=== PATIENT | male | born 1990 | race Caucasian/White ===

== ENCOUNTER 2018-11-24 14:03 | Outpatient (CLI) | payer BC ==
[2018-11-24 17:56] LABS: Hemoglobin 16.6 g/dL (14.0-18.0); Mean Corpuscular HGB CONC 34.8 g/dL (32.0-36.0); Mean Corpuscular Hemoglobin 29.8 pg (27.0-31.0); Mean Corpuscular Volume 85.8 fL (78.0-98.0); Mean Platelet Volume 6.7 fL (7.4-10.4); Platelet Count 331 thou/uL (130-400); RBC Distribution Width 11.6 % (11.5-14.5); Red Blood Cell (RBC) Count 5.55 mill/uL (4.70-6.10); White Blood Cell (WBC) Count 8.2 thou/uL (4.8-10.8)
[2018-11-24 18:22] LABS: ALT (SGPT) 68 U/L (8-55); AST (SGOT) 25 U/L (5-34); Albumin 4.6 g/dL (3.5-5.0); Alkaline Phosphatase 112 U/L (40-150); Anion Gap 12 mmol/L (10-20); BUN (Urea Nitrogen) 17 mg/dL (8.9-20.6); Bilirubin, Total 0.5 mg/dL (0.2-1.2); Calc. Creatinine Clearance 0 mL/min (70-130); Calcium 9.3 mg/dL (7.8-10.44); Carbon Dioxide 25 mmol/L (22-29); Chloride 106 mmol/L (98-107); Estimated GFR-MDRD 84; Globulin 3.4 g/dL (2.4-3.5); Glucose 87 mg/dL (70-105); Potassium 3.7 mmol/L (3.5-5.1); Sodium 139 mmol/L (136-145)
== END 2018-11-24 14:04 | disposition home or self-care (01) ==
LOC: LABBT 14:03
PROVIDERS: ATTEND Surgery
DX: Z01.812 Encounter for preprocedural laboratory examination (principal); K43.9 Ventral hernia without obstruction or gangrene
CPT/HCPCS: 80053; 85027

== ENCOUNTER 2018-11-25 07:32 | Inpatient (IN) | payer BC ==
[2018-11-24 16:52] VITALS: BMI 35.1
[2018-11-25] MEDS ORDERED: Lidocaine 2% Jelly 5 ML TUBE ONE (08:45)
[2018-11-25] MEDS ORDERED: Fentanyl 250 MCG/5 ML VIAL ONE (08:45)
[2018-11-25] MEDS ORDERED: Midazolam HCl 2 mg/2 ml Vial ONE ×2 (08:45→08:47)
[2018-11-25 08:46] LABS: #Basophils 0.1 thou/uL (0.0-0.2); #Eosinphils 0.2 thou/uL (0.0-0.7); #Lymphocytes 1.6 thou/uL (1.20-3.40); #Monocytes 0.5 thou/uL (0.11-0.59); %Basophils 0.8 % (0.0-1.0); %Eosinophils 3.7 % (0.0-10.0); %Lymphocytes 24.8 % (21.0-51.0); %Monocytes 7.8 % (0.0-10.0); %Neutrophils 62.8 % (42.0-75.0); Hemoglobin 15.9 g/dL (14.0-18.0); Mean Corpuscular HGB CONC 33.9 g/dL (32.0-36.0); Mean Corpuscular Hemoglobin 29.2 pg (27.0-31.0); Mean Corpuscular Volume 86.2 fL (78.0-98.0); Mean Platelet Volume 6.6 fL (7.4-10.4); Platelet Count 298 thou/uL (130-400); RBC Distribution Width 11.5 % (11.5-14.5); Red Blood Cell (RBC) Count 5.43 mill/uL (4.70-6.10); White Blood Cell (WBC) Count 6.4 thou/uL (4.8-10.8)
[2018-11-25] MEDS ORDERED: Bupivacaine/Epinephrine 0.25% 30 ML VIAL ONE (08:48)
[2018-11-25] MEDS ORDERED: CEFAZOLIN 2 GM/50 ML BAG ONE (09:03)
[2018-11-25 09:05] LABS: ALT (SGPT) 60 U/L (8-55); AST (SGOT) 26 U/L (5-34); Albumin 4.3 g/dL (3.5-5.0); Alkaline Phosphatase 102 U/L (40-150); Anion Gap 15 mmol/L (10-20); BUN (Urea Nitrogen) 17 mg/dL (8.9-20.6); Bilirubin, Total 0.6 mg/dL (0.2-1.2); Calc. Creatinine Clearance 169 mL/min (70-130); Calcium 9.1 mg/dL (7.8-10.44); Carbon Dioxide 21 mmol/L (22-29); Chloride 108 mmol/L (98-107); Estimated GFR-MDRD 90; Globulin 2.9 g/dL (2.4-3.5); Glucose 112 mg/dL (70-105); Potassium 4.8 mmol/L (3.5-5.1); Protein, Total 7.2 g/dL (6.0-8.3); Sodium 139 mmol/L (136-145)
[2018-11-25] MEDS ORDERED: Fentanyl 100 MCG/2 ML VIAL ONE ×2 (10:33→10:54)
--- NOTE | 2018-11-25 10:53 | OP ---
DATE OF PROCEDURE: 11/25/2018 PREOPERATIVE DIAGNOSIS: Ventral hernia. PROCEDURES PERFORMED: Laparoscopic ventral hernia repair with mesh. INDICATIONS: A 28-year-old male, who has a painful midline ventral hernia just above the umbilicus. FINDINGS: A 2 cm defect, an 11 cm mesh used. DESCRIPTION OF PROCEDURE: After informed consent was obtained, the patient was taken to the operating room and given general endotracheal anesthesia, placed in supine position. Abdomen was prepped and draped in usual fashion. Local anesthesia infiltrated subcutaneously and deep, and a 10 mm incision was performed in the right flank. Veress needle inserted. Drop test performed. Pneumoperitoneum was created to a volume of 2 L of carbon dioxide. Utilizing a bladeless 12-mm trocar and 0-degree laparoscope, direct visual entry into the abdominal cavity was performed. Pneumoperitoneum was then created to a pressure of 15 mmHg. Under direct vision, two 5-mm ports were placed on the right side. Then, a laparoscopic lysis of adhesion was performed to reduce the hernia defect contents. The defect was approximately 2 cm. The falciform ligament was taken down to facilitate closure. The defect was closed primarily transversely utilizing an 0 PDS V-Loc. Then, the 11 cm mesh was fashioned with four 0 Ethibond sutures spaced evenly, hydrated, rolled, and inserted intra-abdominally. The sutures were then grasped individually with the GraNee needle to position the mesh optimally to cover the defect. This was done with the pressure decreased to 10 mmHg. These were tied down and then the mesh further secured to the abdominal wall with the SecureStrap Tacker. Then, the abdomen was decompressed. Scope removed. Trocars removed. Skin was closed with interrupted 4-0 Rapide. Dermabond applied. The patient tolerated the procedure well, transferred to Recovery in good condition. Sponge and needle count verified correct x2. Job ID: [id number]
[2018-11-25] MEDS ORDERED: Morphine 4 MG/ML VIAL ONE ×2 (12:47→14:47)
[2018-11-25] MEDS ORDERED: HYDROcodone/Acetaminophen 10/325 mg Tablet ONE (13:17)
[2018-11-25] MEDS ORDERED: Morphine 2 MG/ML SYRINGE ONE (15:22)
[2018-11-25] MEDS ORDERED: Morphine 4 MG/ML VIAL SLOW IVP PRN ×2 (16:01)
[2018-11-25] MEDS ORDERED: Ondansetron PF 4 MG/2 ML Vial IVP PRN (16:01)
[2018-11-25] MEDS ORDERED: Calcium Carbonate 500 MG ChewTAB PO PRN (16:01)
[2018-11-25] MEDS ORDERED: Mag-Al 1200 mg/1200 mg/30 ML UDCUP PO PRN (16:01)
[2018-11-25] MEDS ORDERED: hydrALAZINE 20 MG/ML VIAL SLOW IVP PRN (16:01)
[2018-11-25] MEDS ORDERED: Promethazine HCl 25 MG/ML VIAL IM PRN (16:01)
[2018-11-25] MEDS ORDERED: Dextrose 50% Abboject 50 ML SYRINGE SLOW IVP PRN (16:01)
[2018-11-25] MEDS ORDERED: HYDROcodone/Acetaminophen 10/325 mg Tablet PO PRN (16:01)
[2018-11-25] MEDS ORDERED: Acetaminophen 325 MG TAB PO PRN (16:01)
[2018-11-25] MEDS ORDERED: Dextrose 5% in Water 1,000 ML IV PRN (16:01)
[2018-11-25] MEDS: Ketorolac Tromethamine 30 MG/ML VIAL IVP SCH ×2 (17:56→23:16)
[2018-11-25] MEDS: D5 1/2 NS w/20 mEq KCL 1,000 ML IV SCH ×2 (17:56→19:47)
[2018-11-25] MEDS: HYDROcodone/Acetaminophen 10/325 mg Tablet PO PRN (18:48)
[2018-11-25] MEDS: Famotidine/PF 20 mg/2ml Vial SLOW IVP SCH (19:44)
[2018-11-25] MEDS: Famotidine 20 MG TAB PO SCH (19:47)
[2018-11-25] MEDS: Docusate 100 MG CAP PO SCH (19:47)
[2018-11-26] MEDS: HYDROcodone/Acetaminophen 10/325 mg Tablet PO PRN ×2 (01:13→06:53)
[2018-11-26] MEDS: Ketorolac Tromethamine 30 MG/ML VIAL IVP SCH ×2 (05:48→06:53)
[2018-11-26 05:50] VITALS: BP 116/76; TEMP 98
[2018-11-26 06:24] LABS: #Lymphocytes 1.3 thou/uL (1.20-3.40); #Monocytes 1.3 thou/uL (0.11-0.59); #Neutrophils 8.2 thou/uL (1.40-6.50); %Basophils 0.1 % (0.0-1.0); %Eosinophils 0.3 % (0.0-10.0); %Lymphocytes 11.9 % (21.0-51.0); %Monocytes 11.6 % (0.0-10.0); %Neutrophils 76.1 % (42.0-75.0); Hemoglobin 14.3 g/dL (14.0-18.0); Mean Corpuscular HGB CONC 34.4 g/dL (32.0-36.0); Mean Corpuscular Hemoglobin 30.1 pg (27.0-31.0); Mean Corpuscular Volume 87.4 fL (78.0-98.0); Mean Platelet Volume 6.3 fL (7.4-10.4); Platelet Count 241 thou/uL (130-400); RBC Distribution Width 11.7 % (11.5-14.5); Red Blood Cell (RBC) Count 4.76 mill/uL (4.70-6.10); White Blood Cell (WBC) Count 10.8 thou/uL (4.8-10.8)
[2018-11-26] MEDS: Docusate 100 MG CAP PO SCH (08:55)
[2018-11-26] MEDS: D5 1/2 NS w/20 mEq KCL 1,000 ML IV SCH (08:55)
[2018-11-26] MEDS: Famotidine/PF 20 mg/2ml Vial SLOW IVP SCH (08:59)
[2018-11-26] MEDS: Famotidine 20 MG TAB PO SCH (08:59)
[2018-11-26] MEDS ORDERED: Enoxaparin Sodium 40 MG/0.4 ML SYRINGE SC SCH (09:00)
== END 2018-11-26 08:55 | disposition home or self-care (01) | DRG 355 ==
LOC: SDC 07:32 → SJJU 16:01
PROVIDERS: ADMIT Surgery; ATTEND Surgery
PROC: 0WUF4JZ Supplement Abdominal Wall with Synthetic Substitute, Percutaneous Endoscopic Approach (ICD-10-PCS; principal; 2018-11-25)
DX: K43.9 Ventral hernia without obstruction or gangrene (principal)
CPT/HCPCS: 36415; 80053; 85025; 85027; 96374; 96375; C1781; J1885; J2250; J2270; J3010

== ENCOUNTER 2019-01-17 10:33 | Day surgery (SDC) | payer BC ==
[2019-01-17] MEDS ORDERED: ISOVUE-370 76%-LOCM 1 ML ONE (10:58)
[2019-01-17 11:48] LABS: Bilirubin Negative (Negative); Blood, Urine Negative (Negative); Clarity CLEAR (Clear); Glucose, Urine (Dipstick) Negative (Negative); Leukocyte Negative (Negative); Nitrite Negative (Negative); Protein, Urine (Dipstick) Negative (Neg-Trace); Specific Gravity, Urine 1.023 (1.002-1.036); Urobilinogen 0.2 mg/dL (0.2-1.0)
[2019-01-17 11:48] LABS: #Basophils 0.1 thou/uL (0.0-0.2); #Eosinphils 0.2 thou/uL (0.0-0.7); #Lymphocytes 1.8 thou/uL (1.20-3.40); #Monocytes 0.7 thou/uL (0.11-0.59); #Neutrophils 5.5 thou/uL (1.40-6.50); %Basophils 0.8 % (0.0-1.0); %Lymphocytes 21.7 % (21.0-51.0); %Neutrophils 66.5 % (42.0-75.0); Hemoglobin 16.7 g/dL (14.0-18.0); Mean Corpuscular HGB CONC 34.5 g/dL (32.0-36.0); Mean Corpuscular Hemoglobin 30.5 pg (27.0-31.0); Mean Corpuscular Volume 88.4 fL (78.0-98.0); Mean Platelet Volume 6.6 fL (7.4-10.4); Platelet Count 299 thou/uL (130-400); RBC Distribution Width 11.6 % (11.5-14.5); Red Blood Cell (RBC) Count 5.48 mill/uL (4.70-6.10); White Blood Cell (WBC) Count 8.2 thou/uL (4.8-10.8)
[2019-01-17 12:12] LABS: ALT (SGPT) 69 U/L (8-55); AST (SGOT) 23 U/L (5-34); Albumin 4.5 g/dL (3.5-5.0); Alkaline Phosphatase 127 U/L (40-150); Anion Gap 12 mmol/L (10-20); BUN (Urea Nitrogen) 10 mg/dL (8.9-20.6); Bilirubin, Total 1.1 mg/dL (0.2-1.2); Calc. Creatinine Clearance 0 mL/min (70-130); Calcium 9.5 mg/dL (7.8-10.44); Carbon Dioxide 28 mmol/L (22-29); Chloride 104 mmol/L (98-107); Estimated GFR-MDRD Greater than 90; Globulin 3.4 g/dL (2.4-3.5); Glucose 93 mg/dL (70-105); Lipase 12 U/L (8-78); Potassium 3.8 mmol/L (3.5-5.1); Protein, Total 7.9 g/dL (6.0-8.3); Sodium 140 mmol/L (136-145)
--- NOTE | 2019-01-17 14:14 | CT ---
CT ABDOMEN AND PELVIS WITH IV CONTRAST: Date: 01/17/19 PROVIDED CLINICAL HISTORY: Right lower quadrant pain. FINDINGS: Visualized lung bases are free of significant opacity. The liver, spleen, pancreas, kidneys, and adrenal glands demonstrate an unremarkable CT appearance. The appendix is mildly dilated and demonstrates mucosal thickening and periappendiceal fat stranding. It does not fill with contrast material despite prominent opacification of the cecum. There is no bowel dilatation, additional inflammatory fat stranding, free fluid, or free air apparent . There is a small, fat-containing left inguinal hernia. There is a small, fat-containing umbilical h ernia. IMPRESSION: Findings compatible with acute appendicitis. POS: TPC
[2019-01-17] MEDS ORDERED: Rocuronium Bromide 10 MG/ML (10ML VIAL) ONE (14:47)
[2019-01-17] MEDS ORDERED: Ketorolac Tromethamine 30 MG/ML VIAL ONE (14:47)
[2019-01-17] MEDS ORDERED: Dexamethasone 20 MG/5 ML VIAL ONE (14:47)
[2019-01-17] MEDS ORDERED: Glycopyrrolate 0.2 MG/ML 5 ML SYRINGE ONE (14:47)
[2019-01-17] MEDS ORDERED: Ondansetron PF 4 MG/2 ML Vial ONE (14:47)
[2019-01-17] MEDS ORDERED: Lidocaine 1% PF 5 ML VIAL ONE (14:47)
[2019-01-17] MEDS ORDERED: PROPOFOL 200 MG/20 ML VIAL ONE (14:47)
[2019-01-17] MEDS ORDERED: Succinylcholine Chloride 20 MG/ML 10 ml SYRINGE FS ONE (14:47)
[2019-01-17] MEDS ORDERED: Bupivacaine/Epinephrine 0.25% 30 ML VIAL ONE (17:22)
[2019-01-17] MEDS ORDERED: Famotidine/PF 20 mg/2ml Vial ONE (17:35)
[2019-01-17] MEDS ORDERED: Fentanyl 100 MCG/2 ML VIAL ONE ×2 (17:35→19:25)
[2019-01-17] MEDS ORDERED: cefOXitin 2 GM in Sodium Chloride 0.9% 100 ML IVPB SCH (18:00)
[2019-01-17] MEDS ORDERED: cefOXitin Sodium/Dextrose,Iso 2 GM in Premix Bag 1 BAG IVPB SCH (18:15)
[2019-01-17] MEDS ORDERED: HYDROcodone/Acetaminophen 5/325 mg Tablet ONE (20:44)
--- NOTE | 2019-01-18 01:21 | OP ---
DATE OF PROCEDURE: 01/17/2019 PREOPERATIVE DIAGNOSIS: Acute appendicitis. POSTOPERATIVE DIAGNOSIS: Acute appendicitis. OPERATION PERFORMED: Laparoscopic appendectomy. ANESTHESIA: General endotracheal. ESTIMATED BLOOD LOSS: 5 mL. FLUIDS GIVEN: 800 mL crystalloids. COUNTS: Sponge and instrument counts were verified as correct x2. COMPLICATIONS: None apparent to operation. INDICATIONS FOR OPERATION: A 28-year-old man presented with a 4-day history of abdominal pain. Clinical radiographic examination was consistent with acute appendicitis for which the patient was brought to the operating room for appendectomy. Findings are consistent with suppurative, but nonperforated retrocecal appendix. DESCRIPTION OF PROCEDURE: Informed consent was obtained from the patient, was brought to the operating room and placed in supine position. Following general anesthesia, the abdomen was sterilely prepped and draped in usual fashion. The skin below the umbilicus was infiltrated with 0.25% Marcaine with epinephrine. A small curvilinear infraumbilical incision was made using 11 scalpel. Umbilical stalk was grasped with Alfredo and elevated. Veress needle was inserted through the incision and placed in the peritoneal cavity through which the abdomen was insufflated with 3 L of CO2 gas. Intraabdominal pressure was noted at 2 mmHg. Following abdominal insufflation, Veress needle was removed and a 5-mm trocar introduced using Visiport under laparoscopy. Laparoscopy confirmed proper placement of the port and no injuries to underlying structures. Additional laparoscopy revealed the right lower quadrant partially obscured by omental adhesions. Under direct vision, a 5 mm epigastric and another 5 mm left lower quadrant ports were placed after the overlying skin were infiltrated with 0.25% Marcaine with epinephrine. Appropriate incision was made. The patient was placed in the Trendelenburg position and rotated to his left. I introduced a Prestige grasper through the left lower quadrant port site using this to bluntly take down omental adhesions from the right lower quadrant to expose suppurative retrocecal appendix. I then grasped the appendix with another Prestige grasper through the suprapubic port site, elevating this. I introduced a [place] type LigaSure device through the left lower quadrant port site using this to serially take down the mesoappendix down to the base. The appendix was then divided at the appendiceal-cecal junction using an Endoloop. The appendix was delivered of the abdominal cavity using EndoCatch. Operative site was inspected for good hemostasis. Fascia of the left lower quadrant port was closed using 0 Vicryl suture and endo-closure device under the laparoscopy. Abdomen was desufflated. All ports and instruments were removed and accounted for. Skin incision was closed using 4-0 Monocryl suture in subcuticular fashion. Dermabond was applied over incisional closure. The patient tolerated the operation without any apparent complication and was returned to recovery room in satisfactory condition. Job ID: [id number]
--- NOTE | 2019-01-18 01:49 | HP ---
HISTORY OF PRESENT ILLNESS: Mr. Bustamante is a 28-year-old man, who presented with 4-day history of abdominal pain which has settled in the right lower quadrant and where it had intensified over the last 24 hours. The patient admits to multiple episodes of nausea, but no emesis. He denies any diarrhea, fevers, or chills. PAST MEDICAL HISTORY: The patient denies any significant past medical history. PAST SURGICAL HISTORY: Significant for laparoscopic ventral herniorrhaphy in November 2018. SOCIAL HISTORY: The patient is employed as a publication designer. He admits to occasional intake of ethanol in moderate amounts. He denies any cigarette smoking or illicit drug abuse. PRE-HOSPITAL MEDICATIONS: None. ALLERGIES: THE PATIENT DENIES ANY KNOWN DRUG ALLERGIES. REVIEW OF SYSTEMS: A 10 point review of systems is essentially unremarkable except as stated in past medical history and chief complaint. PHYSICAL EXAMINATION: GENERAL: This reveals 28-year-old normally developed man, who is otherwise coherent and interactive and appears stated age. The patient is alert and oriented x3, appears to be in no acute distress at the time of my evaluation. VITAL SIGNS: Include blood pressure 139/83, pulse 93, respiratory rate is 17, temperature 98.3 degrees Fahrenheit, oxygen saturation is 99% on room air. HEENT: Reveals normocephalic and atraumatic. Pupils are equal, round, reactive to light and accommodation. Extraocular muscles are intact bilaterally. No scleral icterus is present. HEART: Reveals regular rate and rhythm. No murmurs or gallops auscultated. LUNGS: Clear to auscultation bilaterally. Breathing, regular and unlabored. ABDOMEN: Soft and obese. He has a right lower quadrant tenderness at McBurney's. He has a positive Rovsing sign. Liver and spleen are nonpalpable below costal margin. EXTREMITIES: Reveal 2 +radial and pedal pulses bilaterally. No ankle edema is present. NEUROLOGIC: Reveals no focal deficits present. LABORATORY FINDINGS: Include CBC with 8200 white blood cells, hemoglobin and hematocrit 16.7 and 48.5 respectively. Platelet count 299,000. Metabolic profile; sodium 140, potassium 3.8, chloride is 104, bicarb is 28, BUN 10, creatinine 0.98, glucose 93. AST and ALT 23 and 69 respectively. Serum lipase is normal at 12. CT scan of the abdomen and pelvis reveals a dilated appendix with periappendiceal fat stranding. No pneumoperitoneum or significant free fluid is noted. IMPRESSION: Acute appendicitis. RECOMMENDATIONS: 1. Laparoscopic appendectomy. 2. Above findings and recommendations have been discussed with the patient in the presence of his nurse. 3. I have advised the patient of the risks and benefits of the proposed surgery to include, but not limited to bleeding, infection, injury to bowel or surrounding structures. The patient indicates understanding of information and has granted consent for surgical intervention. I have answered all his questions. Job ID: [id number]
== END 2019-01-17 21:08 | disposition home or self-care (01) ==
LOC: ERS 10:33 → SDC 15:59
PROVIDERS: ATTEND Surgery
PROC: 0DTJ4ZZ Resection of Appendix, Percutaneous Endoscopic Approach (ICD-10-PCS; principal; 2019-01-17)
DX: K35.80 Unspecified acute appendicitis (principal); K36 Other appendicitis; Z79.52 Long term (current) use of systemic steroids; Z98.890 Other specified postprocedural states
CPT/HCPCS: 74177; 80053; 81003; 83690; 85025; 88304; 94760; J0131; J0694; J1100; J1885; J2001; J2405; J2704; J3010; J7050; Q9966; S0028

== ENCOUNTER 2023-12-21 16:00 | Outpatient (CLI) | payer BC | END 2023-12-21 16:01 | disposition home or self-care (01) | LOC: SLEEPLAB 16:00 | PROVIDERS: ATTEND Family Medicine | DX: G47.33 Obstructive sleep apnea (adult) (pediatric) (principal); R53.83 Other fatigue; R06.83 Snoring; E66.9 Obesity, unspecified; E29.1 Testicular hypofunction; F32.A Depression, unspecified; Z68.38 Body mass index [BMI] 38.0-38.9, adult | CPT/HCPCS: 95800 ==